=== PATIENT | male | born 1985 | race Asian ===

== ENCOUNTER 2018-07-21 17:39 | Emergency (ER) | payer SELFPAY ==
[~2018-07-21] VITALS: Ht 170.2 cm; Wt 89.4 kg
[2018-07-21 18:01] VITALS: Ht 170.2 cm; Wt 89.4 kg
[2018-07-21 19:14] VITALS: BP 137/77
== END 2018-07-21 19:14 | disposition home or self-care (01) ==
LOC: ED 17:39
DX: J06.9 Acute upper respiratory infection, unspecified (principal)